=== PATIENT | male | born 1980 | race Two or more races ===

== ENCOUNTER 2025-02-11 06:40 | Inpatient (IN) | payer MEDICAID ==
[~2025-02-11 06:40] MED LIST: LORazepam 2 MG/ML SDV ONE; diphenhydrAMINE 50 MG/ML SDV ONE; droPERidol 2.5 MG/ML SDV ONE
[2025-02-11] MEDS: LORazepam 2 MG/ML SDV IVPUSH ONE ×2 (06:54→10:04)
[2025-02-11] MEDS: Sodium Chloride 0.9% 1,000 ML IV ONE ×2 (06:54→07:57)
[2025-02-11 06:56] LABS: BASOPHILS PERCENT AUTO 0.2 % (0.0-1.0); EOSINOPHILS PERCENT AUTO 0.1 % (0.0-6.0); HEMOGLOBIN 15.1 gm/dl (14.0-18.0); IMMATURE GRAN ABSOLUTE AUTO 0.18 K/mm3 (0.00-0.05); LYMPHOCYTES ABSOLUTE AUTO 3.3 K/mm3 (1.0-4.8); LYMPHOCYTES PERCENT AUTO 19.1 % (24.0-44.0); MEAN CORPUSCULAR HEMOGLOBIN 29.2 pg (28.0-32.0); MEAN CORPUSCULAR HGB CONC 33.6 g/dl (32.0-36.0); MEAN CORPUSCULAR VOLUME 86.9 fl (83.0-99.0); MEAN PLATELET VOLUME 10.3 fl (9.4-12.4); MONOCYTES ABSOLUTE AUTO 1.1 K/mm3 (0.0-0.8); MONOCYTES PERCENT AUTO 6.4 % (0.0-8.0); NEUTROPHILS ABSOLUTE AUTO 12.7 K/mm3 (1.8-7.7); NEUTROPHILS PERCENT AUTO 73.2 % (41.0-71.0); PLATELET COUNT,PLT 272 K/mm3 (150-400); RED BLOOD CELL COUNT 5.18 M/mm3 (4.52-5.90); WHITE BLOOD CELL COUNT,WBC 17.32 K/mm3 (3.9-11.3)
[2025-02-11 07:01] LABS: APPEARANCE,URINE CLEAR (Clear); BILIRUBIN,URINE NEGATIVE (Negative); COLOR,URINE AMBER (Yellow); GLUCOSE,URINE NEGATIVE (Negative); KETONES,URINE NEGATIVE (Negative); LEUKOCYTE ESTERASE,URINE NEGATIVE (Negative); NITRITE,URINE NEGATIVE (Negative); OCCULT BLOOD,URINE 3+ (Negative); PH,URINE 5.5 (5.0-8.0); PROTEIN,URINE 2+ (Negative); UROBILINOGEN,URINE 0.2 (0.2-1.0)
[2025-02-11 07:07] LABS: BARBITURATE SCREEN,URINE NEGATIVE (CUTOFF=200); BENZODIAZEPINES SCREEN,URINE NEGATIVE (CUTOFF=150); BUPRENORPHINE SCREEN,URINE NEGATIVE (CUTOFF=10); METHADONE SCREEN, URINE NEGATIVE (CUT0FF=200); METHAMPHETAMINES SCREEN, URINE PRESUMPTIVE POSITIVE (CUTOFF=500); OXYCODONE SCREEN,URINE NEGATIVE (CUT0FF=100); THC SCREEN,URINE 20 NG/ML NEGATIVE (CUTOFF=50)
[2025-02-11 07:10] LABS: AMPHETAMINES SCREEN, URINE PRESUMPTIVE POSITIVE (CUTOFF=500)
[2025-02-11 07:13] LABS: INR 1.05; PROTHROMBIN TIME 11.1 SECONDS (9.7-12.0)
[2025-02-11 07:15] LABS: O2 SATURATION VENOUS 84.7; PH,VENOUS 7.16 (7.30-7.40)
[2025-02-11 07:16] LABS: BASE EXCESS VENOUS -15.6 (-4.0-2.0); BICARBONATE,VENOUS 12.1 meq/L (22-26)
[2025-02-11 07:25] LABS: A/G RATIO 1.1 (1-2); ALBUMIN 3.7 g/dl (3.4-5.0); ANION GAP 24.3 (5-15); BILIRUBIN TOTAL 0.9 mg/dL (0.2-1.0); BUN/CREATININE RATIO 8.5 (14-18); CALCIUM 8.2 mg/dL (8.5-10.1); CREATININE 1.3 mg/dL (0.7-1.3); EST CRCL DRUG DOSING (CG) 77.23 mL/min; MAGNESIUM 1.7 mg/dL (1.8-2.4); POTASSIUM,K 4.3 mEq/L (3.5-5.1); PROTEIN TOTAL,TP 7.2 g/dl (6.4-8.2); TSH 2.96 uIU/mL (0.358-3.74)
[2025-02-11] MEDS: Ondansetron 4 MG/2 ML SDV IVPUSH ONE (07:25)
[2025-02-11] MEDS: Ondansetron 4 MG/2 ML SDV ONE (07:36)
[2025-02-11] MEDS: Sodium Chloride 0.9% 10 ML Syringe FLUSH PRN (07:37)
[2025-02-11 07:47] LABS: LACTIC ACID 12.1 mmol/L (0.4-2.0)
[2025-02-11 08:32] LABS: RBC,URINE 20-30 /hpf (0-5)
[2025-02-11 08:33] LABS: AMORPHOUS SEDIMENT,URINE FEW /hpf (NOT SEEN); BACTERIA,URINE FEW /hpf (FEW); MUCUS,URINE MODERATE /hpf (FEW); SQUAMOUS EPITHELIAL CELLS,UR 0-5 /hpf (0-5); WBC,URINE 0-5 /hpf (0-5)
[2025-02-11] MEDS ORDERED: Acetaminophen 325 MG Tab PO PRN (09:01)
[2025-02-11 09:56] LABS: SODIUM,URINE RANDOM 39 mEq/L (40-220)
[2025-02-11] MEDS ORDERED: Succinylcholine 200 MG/10 ML MDV ONE (10:00)
[2025-02-11] MEDS ORDERED: Propofol 200 MG/20 ML SDV ONE (10:00)
[2025-02-11] MEDS: LORazepam 2 MG/ML SDV ONE (10:01)
[2025-02-11 10:02] LABS: PHOSPHORUS 2.4 mg/dL (2.6-4.7)
[2025-02-11] MEDS: Sodium Chloride 3% 100 ML IV ONE ×3 (10:41→14:36)
[2025-02-11 10:44] LABS: OSMOLALITY,URINE 350 mosm/kg (400-1100)
[2025-02-11] MEDS: Magnesium Sulf/Wat 2 GM/50 mL 2 GM in Premix Bag 1 BAG IV ONE (10:50)
[2025-02-11 11:55] LABS: BASE EXCESS ARTERIAL -6.7 (-2-2.0); BICARBONATE,ARTERIAL 17.3 meq/L (22.0-26.0); O2 SATURATION ARTERIAL 95.1 % (96.0-97.0)
[2025-02-11 14:02] LABS: BASE EXCESS ARTERIAL -1.9 (-2-2.0); BICARBONATE,ARTERIAL 20.9 meq/L (22.0-26.0)
[2025-02-11] MEDS: Sodium Chloride 3% 500 ML IV SCH ×2 (14:48→16:45)
[2025-02-11] MEDS: Pantoprazole 40 MG Vial IVPUSH SCH (14:52)
[2025-02-11 16:39] LABS: ALBUMIN 2.8 g/dl (3.4-5.0); ANION GAP 14.8 (5-15); BILIRUBIN TOTAL 1.2 mg/dL (0.2-1.0); CREATININE 0.9 mg/dL (0.7-1.3); EST CRCL DRUG DOSING (CG) 111.56 mL/min; POTASSIUM,K 3.8 mEq/L (3.5-5.1); PROTEIN TOTAL,TP 5.7 g/dl (6.4-8.2)
[2025-02-11 16:42] LABS: CALCIUM 6.7 mg/dL (8.5-10.1)
[2025-02-11 17:36] LABS: HEPATITIS C AB NON-REACTIVE (Non-React)
[2025-02-11 17:37] LABS: HIV RAPID SCREEN RLFX COMFIRM NON-REACTIVE (Non-React)
[2025-02-11] MEDS: Calcium Gluconate 10% 1 GM/10 ML SDV IVPUSH ONE (18:17)
[2025-02-11] MEDS: Hydrocortisone Sodium Succinate 100 MG/2 ML SDV IVPUSH ONE (20:13)
[2025-02-12] MEDS: Hydrocortisone Sodium Succinate 100 MG/2 ML SDV IVPUSH SCH (02:12)
[2025-02-12 05:36] LABS: BASOPHILS PERCENT AUTO 0.1 % (0.0-1.0); EOSINOPHILS PERCENT AUTO 0.1 % (0.0-6.0); HEMATOCRIT 39.9 % (42.0-52.0); HEMOGLOBIN 14.3 gm/dl (14.0-18.0); IMMATURE GRAN ABSOLUTE AUTO 0.05 K/mm3 (0.00-0.05); IMMATURE GRAN PERCENT AUTO 0.3 % (0.0-0.4); LYMPHOCYTES ABSOLUTE AUTO 0.7 K/mm3 (1.0-4.8); LYMPHOCYTES PERCENT AUTO 4.6 % (24.0-44.0); MEAN CORPUSCULAR HEMOGLOBIN 29.2 pg (28.0-32.0); MEAN CORPUSCULAR HGB CONC 35.8 g/dl (32.0-36.0); MEAN PLATELET VOLUME 10.8 fl (9.4-12.4); MONOCYTES ABSOLUTE AUTO 0.4 K/mm3 (0.0-0.8); MONOCYTES PERCENT AUTO 2.5 % (0.0-8.0); NEUTROPHILS ABSOLUTE AUTO 13.3 K/mm3 (1.8-7.7); NEUTROPHILS PERCENT AUTO 92.4 % (41.0-71.0); PLATELET COUNT,PLT 220 K/mm3 (150-400); WHITE BLOOD CELL COUNT,WBC 14.41 K/mm3 (3.9-11.3)
[2025-02-12 05:37] LABS: MEAN CORPUSCULAR VOLUME 81.4 fl (83.0-99.0)
[2025-02-12 05:52] LABS: A/G RATIO 0.9 (1-2); ALBUMIN 2.8 g/dl (3.4-5.0); CALCIUM 7.7 mg/dL (8.5-10.1); EST CRCL DRUG DOSING (CG) 100.4 mL/min; POTASSIUM,K 4.8 mEq/L (3.5-5.1); PROTEIN TOTAL,TP 6.1 g/dl (6.4-8.2)
[2025-02-12 06:07] LABS: ANION GAP 12.8 (5-15)
[2025-02-12 06:11] LABS: SLIDE REVIEW ABNORMAL SMEAR
[2025-02-12 08:09] LABS: BASE EXCESS ARTERIAL -0.8 (-2-2.0); BICARBONATE,ARTERIAL 23.5 meq/L (22.0-26.0); O2 SATURATION ARTERIAL 98.7 % (96.0-97.0)
[2025-02-12] MEDS: Enoxaparin 40 MG/0.4 ML Syringe SUBCUT SCH (10:34)
[2025-02-12] MEDS: metroNIDAZOLE/Normal Saline 500 MG in Premix Bag 1 BAG IV SCH (16:22)
[2025-02-12] MEDS: cefTRIAXone 1 GM Vial IVPUSH SCH (16:24)
[2025-02-12] MEDS: Insulin Lispro 100 Unit/ML 3 ML KwikPen SUBCUT SCH (17:45)
[2025-02-13] MEDS: levETIRAcetam 500 MG in Sodium Chloride 0.9% 100 ML IV SCH (00:56)
[2025-02-13 05:45] LABS: BASOPHILS PERCENT AUTO 0.2 % (0.0-1.0); EOSINOPHILS PERCENT AUTO 0.2 % (0.0-6.0); HEMATOCRIT 36.4 % (42.0-52.0); IMMATURE GRAN ABSOLUTE AUTO 0.05 K/mm3 (0.00-0.05); IMMATURE GRAN PERCENT AUTO 0.4 % (0.0-0.4); LYMPHOCYTES ABSOLUTE AUTO 1.5 K/mm3 (1.0-4.8); LYMPHOCYTES PERCENT AUTO 11.9 % (24.0-44.0); MEAN CORPUSCULAR HEMOGLOBIN 29.4 pg (28.0-32.0); MEAN CORPUSCULAR HGB CONC 35.2 g/dl (32.0-36.0); MEAN CORPUSCULAR VOLUME 83.7 fl (83.0-99.0); MEAN PLATELET VOLUME 10.8 fl (9.4-12.4); MONOCYTES ABSOLUTE AUTO 0.6 K/mm3 (0.0-0.8); NEUTROPHILS ABSOLUTE AUTO 10.2 K/mm3 (1.8-7.7); NEUTROPHILS PERCENT AUTO 82.3 % (41.0-71.0); PLATELET COUNT,PLT 164 K/mm3 (150-400); RED BLOOD CELL COUNT 4.35 M/mm3 (4.52-5.90); WHITE BLOOD CELL COUNT,WBC 12.39 K/mm3 (3.9-11.3)
[2025-02-13 05:50] LABS: HEMOGLOBIN 12.8 gm/dl (14.0-18.0)
[2025-02-13 06:16] LABS: A/G RATIO 0.7 (1-2); ALBUMIN 2.2 g/dl (3.4-5.0); ANION GAP 9.5 (5-15); BILIRUBIN TOTAL 0.6 mg/dL (0.2-1.0); BUN/CREATININE RATIO 14.3 (14-18); CALCIUM 7.6 mg/dL (8.5-10.1); CREATININE 0.7 mg/dL (0.7-1.3); EST CRCL DRUG DOSING (CG) 143.43 mL/min; MAGNESIUM 1.9 mg/dL (1.8-2.4); PHOSPHORUS 1.6 mg/dL (2.6-4.7); POTASSIUM,K 3.5 mEq/L (3.5-5.1); PROTEIN TOTAL,TP 5.5 g/dl (6.4-8.2)
[2025-02-13] MEDS ORDERED: LORazepam 2 MG/ML SDV IVPUSH PRN (07:45)
[2025-02-13] MEDS: Potassium Phosphates 30 MMOLE in Sodium Chloride 0.9% 500 ML IV SCH (08:08)
[2025-02-13] MEDS ORDERED: levETIRAcetam 500 MG/5 ML SDV IVPUSH SCH (09:00)
[2025-02-13] MEDS: Dextrose 5% in Water 1,000 ML IV SCH (09:28)
[2025-02-13 11:58] LABS: BICARBONATE,ARTERIAL 20.4 meq/L (22.0-26.0); PCO2 ARTERIAL 31.3 mmHg (35.0-45.0)
[2025-02-13 12:52] LABS: ANION GAP 11.7 (5-15); BUN/CREATININE RATIO 8.9 (14-18); CALCIUM 7.7 mg/dL (8.5-10.1); CREATININE 0.9 mg/dL (0.7-1.3); EST CRCL DRUG DOSING (CG) 111.56 mL/min; POTASSIUM,K 4.7 mEq/L (3.5-5.1)
[2025-02-13] MEDS ORDERED: Sennosides/Docusate Sodium 50-8.6 MG Tab PO PRN (15:01)
[2025-02-13] MEDS ORDERED: 50% Dextrose in Water 50 ML Syringe IVPUSH PRN (17:13)
[2025-02-13] MEDS ORDERED: Acetaminophen 325 MG Supp RECTAL PRN (18:00)
[2025-02-13] MEDS: levETIRAcetam 500 MG/5 ML SDV IVPUSH SCH (20:36)
[2025-02-14 04:54] LABS: BASOPHILS PERCENT AUTO 0.2 % (0.0-1.0); EOSINOPHILS PERCENT AUTO 0.1 % (0.0-6.0); HEMATOCRIT 38.9 % (42.0-52.0); HEMOGLOBIN 13.6 gm/dl (14.0-18.0); IMMATURE GRAN ABSOLUTE AUTO 0.06 K/mm3 (0.00-0.05); IMMATURE GRAN PERCENT AUTO 0.5 % (0.0-0.4); LYMPHOCYTES ABSOLUTE AUTO 1.6 K/mm3 (1.0-4.8); MEAN CORPUSCULAR HEMOGLOBIN 29.4 pg (28.0-32.0); MEAN PLATELET VOLUME 10.7 fl (9.4-12.4); MONOCYTES ABSOLUTE AUTO 0.7 K/mm3 (0.0-0.8); MONOCYTES PERCENT AUTO 6.1 % (0.0-8.0); NEUTROPHILS ABSOLUTE AUTO 9.7 K/mm3 (1.8-7.7); NEUTROPHILS PERCENT AUTO 80.1 % (41.0-71.0); PLATELET COUNT,PLT 228 K/mm3 (150-400); RED BLOOD CELL COUNT 4.63 M/mm3 (4.52-5.90); WHITE BLOOD CELL COUNT,WBC 12.12 K/mm3 (3.9-11.3)
[2025-02-14 05:49] LABS: A/G RATIO 0.6 (1-2); ALBUMIN 2.4 g/dl (3.4-5.0); ANION GAP 9.8 (5-15); BILIRUBIN TOTAL 0.5 mg/dL (0.2-1.0); BUN/CREATININE RATIO 4.5 (14-18); C-REACTIVE PROTEIN 20.68 mg/dL (<0.30); CALCIUM 8.4 mg/dL (8.5-10.1); CREATININE 1.1 mg/dL (0.7-1.3); EST CRCL DRUG DOSING (CG) 91.27 mL/min; MAGNESIUM 2.1 mg/dL (1.8-2.4); PHOSPHORUS 2.9 mg/dL (2.6-4.7); POTASSIUM,K 3.8 mEq/L (3.5-5.1); PROTEIN TOTAL,TP 6.4 g/dl (6.4-8.2)
[2025-02-14 07:41] LABS: ACTH 4.3 pg/mL (7.2-63.3)
[2025-02-14] MEDS: Sodium Chloride 0.9% 10 ML Syringe FLUSH SCH (09:16)
[2025-02-14] MEDS: Gadobenate Dimeglumine 529 MG/ML 20 ML SDV IVPUSH ONE (09:16)
[2025-02-14 11:42] LABS: HEP B SURFACE AG Negative (Negative)
[2025-02-14] MEDS: Dextrose 5% in Water 1,000 ML IV SCH (13:29)
[2025-02-14] MEDS: levETIRAcetam 500 MG Tab PO SCH (20:28)
[2025-02-15 05:32] LABS: A/G RATIO 0.7 (1-2); ALBUMIN 2.9 g/dl (3.4-5.0); ANION GAP 10.8 (5-15); BILIRUBIN TOTAL 0.5 mg/dL (0.2-1.0); C-REACTIVE PROTEIN 13.21 mg/dL (<0.30); CALCIUM 8.9 mg/dL (8.5-10.1); EST CRCL DRUG DOSING (CG) 100.4 mL/min; POTASSIUM,K 3.8 mEq/L (3.5-5.1); PROTEIN TOTAL,TP 7.2 g/dl (6.4-8.2)
[2025-02-15 06:13] LABS: BASOPHILS ABSOLUTE AUTO 0.1 K/mm3 (0.0-0.2); BASOPHILS PERCENT AUTO 0.5 % (0.0-1.0); EOSINOPHILS ABSOLUTE AUTO 0.1 K/mm3 (0.0-0.4); EOSINOPHILS PERCENT AUTO 1.1 % (0.0-6.0); HEMATOCRIT 42.7 % (42.0-52.0); HEMOGLOBIN 14.7 gm/dl (14.0-18.0); IMMATURE GRAN ABSOLUTE AUTO 0.07 K/mm3 (0.00-0.05); IMMATURE GRAN PERCENT AUTO 0.5 % (0.0-0.4); LYMPHOCYTES PERCENT AUTO 15.4 % (24.0-44.0); MEAN CORPUSCULAR HEMOGLOBIN 29.3 pg (28.0-32.0); MEAN CORPUSCULAR HGB CONC 34.4 g/dl (32.0-36.0); MEAN CORPUSCULAR VOLUME 85.1 fl (83.0-99.0); MEAN PLATELET VOLUME 11.2 fl (9.4-12.4); MONOCYTES ABSOLUTE AUTO 0.7 K/mm3 (0.0-0.8); MONOCYTES PERCENT AUTO 5.8 % (0.0-8.0); NEUTROPHILS ABSOLUTE AUTO 9.8 K/mm3 (1.8-7.7); NEUTROPHILS PERCENT AUTO 76.7 % (41.0-71.0); PLATELET COUNT,PLT 323 K/mm3 (150-400); RED BLOOD CELL COUNT 5.02 M/mm3 (4.52-5.90); WHITE BLOOD CELL COUNT,WBC 12.74 K/mm3 (3.9-11.3)
== END 2025-02-15 15:45 | disposition home or self-care (01) | DRG 100 ==
LOC: JD.ED 06:40 → JD.ICU 08:54
PROVIDERS: ADMIT Family Medicine; ATTEND Student in an Organized Health Care Education/Training Program
PROC: 5A1945Z Respiratory Ventilation, 24-96 Consecutive Hours (ICD-10-PCS; principal; 2025-02-11)
PROC: 0BH17EZ Insertion of Endotracheal Airway into Trachea, Via Natural or Artificial Opening (ICD-10-PCS; 2025-02-11)
PROC: 4A133R1 Monitoring of Arterial Saturation, Peripheral, Percutaneous Approach (ICD-10-PCS; 2025-02-11)
DX: G40.901 Epilepsy, unspecified, not intractable, with status epilepticus (principal); G92.8 Other toxic encephalopathy; J18.9 Pneumonia, unspecified organism; J69.0 Pneumonitis due to inhalation of food and vomit; J96.01 Acute respiratory failure with hypoxia; G37.2 Central pontine myelinolysis; E87.1 Hypo-osmolality and hyponatremia; S36.119A Unspecified injury of liver, initial encounter; E87.20 Acidosis, unspecified; F15.129 Other stimulant abuse with intoxication, unspecified; T43.625A Adverse effect of amphetamines, initial encounter; R74.01 Elevation of levels of liver transaminase levels; E87.6 Hypokalemia; E83.42 Hypomagnesemia; E83.39 Other disorders of phosphorus metabolism; Z99.81 Dependence on supplemental oxygen
CPT/HCPCS: 36415; 36600; 51702; 70450; 70450-26; 70553; 70553-26; 71045; 71045-26; 80048; 80053; 80061; 80143; 80179; 80306; 80307; 81001; 82024; 82533; 82803; 82947; 83605; 83690; 83735; 83930; 83935; 84100; 84295; 84300; 84443; 84484; 85025; 85610; 86140; 86803; 87040; 87340; 87428-QW; 93005; 93010; 94002; 94003; 94761; 94762; 96361; 96374; 96375; 97116-GP; 97162-GP; 97530-GP; 99285; 99285-25; A9270-GY; A9577; C1758; G0433; J0330; J0612; J0696; J1650; J1720; J1836; J1953; J2060; J2250; J2405; J2470; J2597; J2704; J3475; J3490; J7030; J7040; J7070; J7131